=== PATIENT | female | born 1965 | race Asian ===

== ENCOUNTER 2017-04-30 20:00 | Emergency (ER) | payer OTHER ==
[~2017-04-30] VITALS: Ht 152.4 cm; Wt 60.0 kg
[2017-04-30 20:05] VITALS: BP 149/79; PULSE 70; RESP 16; TEMP 98.2; O2SAT 100
[2017-04-30 20:16] VITALS: O2SAT 100
[2017-04-30] MEDS ORDERED: ONDANSETRON HCL 4 MG/2 ML VIAL ONE (20:32)
[2017-04-30 20:36] LABS: AUTOMATED NEUTROPHIL # 14.1 TH/MM3 (1.8-7.7); BASOPHIL % 0.3 % (0.0-2.0); EOSINOPHIL % 0.1 % (0.0-4.0); HEMATOCRIT 40.6 % (35.0-46.0); HEMOGLOBIN 13.8 GM/DL (11.6-15.3); LYMPH % 7.2 % (9.0-44.0); LYMPHOCYTE # 1.1 TH/MM3 (1.0-4.8); MEAN CORPUSCULAR HEMOGLOBIN 27.9 PG (27.0-34.0); MEAN PLATELET VOLUME 8.3 FL (7.0-11.0); MONO % 2.5 % (0.0-8.0); MONOCYTE # 0.4 TH/MM3 (0-0.9); NEUT % 89.9 % (16.0-70.0); PLATELET COUNT 291 TH/MM3 (150-450); RED BLOOD COUNT 4.95 MIL/MM3 (4.00-5.30); RED CELL DISTRIBUTION WIDTH 13.1 % (11.6-17.2); WHITE BLOOD COUNT 15.7 TH/MM3 (4.0-11.0)
[2017-04-30] MEDS ORDERED: SODIUM CHLOR 0.9% 1000 ML INJ 1,000 ML IV ONE (20:45)
[2017-04-30] MEDS ORDERED: ONDANSETRON HCL 4 MG/2 ML VIAL IV PUSH ONE (20:45)
--- NOTE | 2017-04-30 21:07 | PD ---
HPI Chief Complaint: Syncope/Near-Syncope Time Seen by Provider: 20:13 Travel History International Travel<30 days: Yes Contact w/Intl Traveler<30days: Yes Name of Country Traveled to: [place] Traveled to known affect area: No History of Present Illness HPI 52-year-old female that presents to the ED for evaluation of syncope. Patient has syncopal episode today. This was witnessed by multiple people. Patient is from [place] and apparently has been under a lot of stress secondary to a primary she was planning a republican today and recent family loss. Per family member and patient she has not eaten anything since last night. Denies any symptoms like this in the past. Per patient today before this happened she started feeling numbness and tingling to her arms and legs and then the she had the syncopal episode. Per family and patient she did not completely lose consciousness. Ambulance was called for evaluation. She was brought here by ambulance. She denies any pain but she states that she feels "dizzy". Per patient she feels weak and tired. She has had some nausea and she did throw up once here today in the ED. She denies any chest pain or shortness of breath. No abdominal pain. No urinary or bowel movement symptoms. She has no allergies to medication. She has not seen anybody for this. She denies any history of ACS states that she takes no medications. She can recently from [place]. Family provides most of the translation and information. Event happened about half an hour before coming to the ED and possibly less than 5 minutes. PFSH Past Medical History Diminished Hearing: No ?: Not Past Surgical History Other Surgery: Yes (NOSE, BREAST BIOPSY) Social History Alcohol Use: Yes (OCCASIONALLY) Tobacco Use: No Substance Use: No Allergies-Medications (Allergen,Severity, Reaction): Coded Allergies: No Known Allergies (Unverified , 04/30/17) Reported Meds & Prescriptions Reported Meds & Active Scripts Active Potassium Chloride ER (Potassium Chloride) 10 Meq Tab 10 Meq PO DAILY 5 Days Review of Systems Except as stated in HPI: all other systems reviewed are Neg Physical Exam Narrative GENERAL: SKIN: Warm and dry. HEAD: Atraumatic. Normocephalic. EYES: Pupils equal and round 4 mm reactive to light and accommodation. No scleral icterus. No injection or drainage. ENT: No nasal bleeding or discharge. Mucous membranes pink and moist. Tongue is midline. No uvula deviation. NECK: Trachea midline. No JVD. CARDIOVASCULAR: Regular rate and rhythm. No murmurs, S3, S4. RESPIRATORY: No accessory muscle use. Clear to auscultation. Breath sounds equal bilaterally. GASTROINTESTINAL: Abdomen soft, non-tender, nondistended. Hepatic and splenic margins not palpable. MUSCULOSKELETAL: Extremities without clubbing, cyanosis, or edema. No obvious deformities. Full range of motion of the upper and lower extremities bilaterally. 2+ pulses bilaterally. Sensation intact bilaterally. NEUROLOGICAL: Awake and alert. No obvious cranial nerve deficits. Motor grossly within normal limits. Five out of 5 muscle strength in the arms and legs. Normal speech. PSYCHIATRIC: Appropriate mood and affect; insight and judgment normal. Data Data Last Documented VS Vital Signs Date Time Temp Pulse Resp B/P (MAP) Pulse Ox O2 Delivery O2 Flow Rate FiO2 04/30/17 21:54 70 16 158/84 (108) 100 Room Air 04/30/17 20:05 98.2 Orders Orders Electrocardiogram (04/30/17 20:13) Complete Blood Count With Diff (04/30/17 20:13) Basic Metabolic Panel (Bmp) (04/30/17 20:13) Ckmb (Isoenzyme) Profile (04/30/17 20:13) Troponin I (04/30/17 20:13) D-Dimer (04/30/17 20:13) Magnesium (Mg) (04/30/17 20:13) Thyroid Stimulating Hormone (04/30/17 20:13) Chest, Single Ap (04/30/17 20:13) Ct Brain W/O Iv Contrast(Rout) (04/30/17 20:13) Iv Access Insert/Monitor (04/30/17 20:13) Ecg Monitoring (04/30/17 20:13) Oximetry (04/30/17 20:13) Ondansetron Inj (Zofran Inj) (04/30/17 20:32) Ondansetron Inj (Zofran Inj) (04/30/17 20:45) Sodium Chlor 0.9% 1000 Ml Inj (Ns 1000 M (04/30/17 20:45) Orthostatic Vital Signs (04/30/17 20:36) Potassium Chlor 10 Meq Premix (Kcl 10 Me (04/30/17 21:30) Potassium Chloride (Kcl) (04/30/17 21:30) Ed Discharge Order (04/30/17 22:46) Labs Laboratory Tests Test 04/30/17 20:20 White Blood Count 15.7 TH/MM3 Red Blood Count 4.95 MIL/MM3 Hemoglobin 13.8 GM/DL Hematocrit 40.6 % Mean Corpuscular Volume 82.0 FL Mean Corpuscular Hemoglobin 27.9 PG Mean Corpuscular Hemoglobin Concent 34.0 % Red Cell Distribution Width 13.1 % Platelet Count 291 TH/MM3 Mean Platelet Volume 8.3 FL Neutrophils (%) (Auto) 89.9 % Lymphocytes (%) (Auto) 7.2 % Monocytes (%) (Auto) 2.5 % Eosinophils (%) (Auto) 0.1 % Basophils (%) (Auto) 0.3 % Neutrophils # (Auto) 14.1 TH/MM3 Lymphocytes # (Auto) 1.1 TH/MM3 Monocytes # (Auto) 0.4 TH/MM3 Eosinophils # (Auto) 0.0 TH/MM3 Basophils # (Auto) 0.0 TH/MM3 CBC Comment DIFF FINAL Differential Comment D-Dimer Quantitative (PE/DVT) 0.49 MG/L FEU Blood Urea Nitrogen 17 MG/DL Creatinine 0.94 MG/DL Random Glucose 155 MG/DL Calcium Level 8.8 MG/DL Magnesium Level 1.8 MG/DL Sodium Level 135 MEQ/L Potassium Level 2.6 MEQ/L Chloride Level 102 MEQ/L Carbon Dioxide Level 22.4 MEQ/L Anion Gap 11 MEQ/L Estimat Glomerular Filtration Rate 62 ML/MIN Total Creatine Kinase 74 U/L Troponin I LESS THAN 0.02 NG/ML Thyroid Stimulating Hormone 3rd Gen 1.740 uIU/ML MDM Medical Decision Making Medical Screen Exam Complete: Yes Emergency Medical Condition: Yes Medical Record Reviewed: Yes Interpretation(s) CBC & BMP Diagram 04/30/17 20:20 Calcium Level 8.8, Magnesium Level 1.[address] 04/30/172012 Signed Impressions: Service Date/Time: Sunday, April 30, 2017 21:30 - CONCLUSION: No acute intracranial findings. Andreas Sarabia MD Chest X-Ray 04/30/172012 Signed Impressions: Service Date/Time: Sunday, April 30, 2017 20:31 - CONCLUSION: No acute cardiopulmonary disease identified. Andreas Sarabia MD Troponin and CK-MB negative. EKG showed sinus rhythm with no sign of acute ischemia or arrhythmia read by me and attending. Differential Diagnosis Anxiety versus syncope versus presyncope versus dehydration versus chest pain versus ACS versus head injury versus normal exam Narrative Course 52-year-old female that presents to the ED for evaluation of possible syncope. Patient was properly examined and was found to have signs and symptoms consistent appears to be possible syncope. Labs and imaging ordered. Labs and imaging showed no sign of acute disease other than hypokalemia. Case discussed in my attending Dr. Marcelo who evaluated the patient with me and agrees with plan. Patient prefers to go home. She was offered admission for further evaluation but she declines at this time. She was given IV potassium as well as by mouth potassium. Patient was given a prescription for by mouth potassium. Told to get her potassium rechecked in about a week. See ED for any worsening symptoms. Follow with PCP. Diagnosis Primary Impression: Syncope Qualified Codes: R55 - Syncope and collapse Additional Impression: Hypokalemia Patient Instructions: General Instructions Additional Instructions: Take medication as prescribed. Follow with PCP. See ED for worsening symptoms. Med/Other Pt SpecificInfo: Prescription(s) given Scripts Potassium Chloride ER (Potassium Chloride ER) 10 Meq Tab 10 MEQ PO DAILY for Electrolyte Replacement for 5 Days, #5 TAB 0 Refills Prov: Jurgen Marcelo MD 04/30/17 Disposition: 01 DISCHARGE HOME Condition: Stable Emil Estrada Apr 30, 2017 21:07
[2017-04-30 21:17] LABS: BICARBONATE 22.4 MEQ/L (21.0-32.0); BLOOD UREA NITROGEN 17 MG/DL (7-18); CALCIUM 8.8 MG/DL (8.5-10.1); CHLORIDE 102 MEQ/L (98-107); CREATININE 0.94 MG/DL (0.50-1.00); GLOMERULAR FILTRATION RATE 62 ML/MIN (>89); GLUCOSE,RANDOM 155 MG/DL (74-106); MAGNESIUM 1.8 MG/DL (1.5-2.5); SODIUM (NA) 135 MEQ/L (136-145); TROPONIN I LESS THAN 0.02 NG/ML (0.02-0.05)
[2017-04-30] MEDS ORDERED: POTASSIUM CHLOR 10 MEQ PREMIX 100 ML IV ONE (21:30)
[2017-04-30] MEDS ORDERED: POTASSIUM CHLORIDE 20 MEQ CONTROLLED RELEASE TAB PO ONE (21:30)
--- NOTE | 2017-04-30 21:37 | RADRPT ---
EXAM DATE/TIME: 04/30/2017 20:31 [facility] COMPARISON: No previous studies available for comparison. INDICATIONS : Syncope. MEDICAL HISTORY : None. SURGICAL HISTORY : None. ENCOUNTER: Initial ACUITY: 1 day PAIN SCORE: 0/10 LOCATION: Bilateral chest FINDINGS: Single AP view of the chest. The lungs are clear. Cardiomediastinal silhouette within normal limits. No evidence of pleural effusion or pneumothorax. CONCLUSION: No acute cardiopulmonary disease identified. Andreas Sarabia MD on April 30, 2017 at 21:35 Board Certified Radiologist. This report was verified electronically.
[2017-04-30 21:54] VITALS: BP 158/84; PULSE 70; RESP 16; O2SAT 100
--- NOTE | 2017-04-30 22:23 | RADRPT ---
EXAM DATE/TIME: 04/30/2017 21:30 [facility] COMPARISON: No previous studies available for comparison. INDICATIONS : Syncope with nausea. RADIATION DOSE: 28.95 CTDIvol (mGy) MEDICAL HISTORY : None SURGICAL HISTORY : None. ENCOUNTER: Initial ACUITY: 1 day PAIN SCALE: 0/10 LOCATION: cranial TECHNIQUE: Multiple contiguous axial images were obtained of the head. Using automated exposure control and adj ustment of the mA and/or kV according to patient size, radiation dose was kept as low as reasonably a chievable to obtain optimal diagnostic quality images. DICOM format image data is available electro nically for review and comparison. FINDINGS: CEREBRUM: The ventricles are normal for age. No evidence of midline shift, mass lesion, hemorrhage or acute in farction. No extra-axial fluid collections are seen. POSTERIOR FOSSA: The cerebellum and brainstem are intact. The 4th ventricle is midline. The cerebellopontine angle i s unremarkable. EXTRACRANIAL: The visualized portion of the orbits is intact. SKULL: The calvaria is intact. No evidence of skull fracture. CONCLUSION: No acute intracranial findings. Andreas Sarabia MD on April 30, 2017 at 22:21 Board Certified Radiologist. This report was verified electronically.
[2017-04-30] MEDS ORDERED: POTA10TA2 PO (22:46)
[2017-04-30 22:58] VITALS: BP_SYST 146; BP_SYST 154; BP_DIAS 87; BP_DIAS 88; BP_DIAS 94; RESP 16
--- NOTE | 2017-04-30 23:11 | PD ---
Data Data Last Documented VS Vital Signs Date Time Temp Pulse Resp B/P (MAP) Pulse Ox O2 Delivery O2 Flow Rate FiO2 04/30/17 23:00 04/30/17 22:58 70 16 71 16 66 04/30/17 21:54 100 Room Air 04/30/17 20:05 98.2 Orders Orders Electrocardiogram (04/30/17 20:13) Complete Blood Count With Diff (04/30/17 20:13) Basic Metabolic Panel (Bmp) (04/30/17 20:13) Ckmb (Isoenzyme) Profile (04/30/17 20:13) Troponin I (04/30/17 20:13) D-Dimer (04/30/17 20:13) Magnesium (Mg) (04/30/17 20:13) Thyroid Stimulating Hormone (04/30/17 20:13) Chest, Single Ap (04/30/17 20:13) Ct Brain W/O Iv Contrast(Rout) (04/30/17 20:13) Iv Access Insert/Monitor (04/30/17 20:13) Ecg Monitoring (04/30/17 20:13) Oximetry (04/30/17 20:13) Ondansetron Inj (Zofran Inj) (04/30/17 20:32) Ondansetron Inj (Zofran Inj) (04/30/17 20:45) Sodium Chlor 0.9% 1000 Ml Inj (Ns 1000 M (04/30/17 20:45) Orthostatic Vital Signs (04/30/17 20:36) Potassium Chlor 10 Meq Premix (Kcl 10 Me (04/30/17 21:30) Potassium Chloride (Kcl) (04/30/17 21:30) Ed Discharge Order (04/30/17 22:46) Labs Laboratory Tests Test 04/30/17 20:20 White Blood Count 15.7 TH/MM3 Red Blood Count 4.95 MIL/MM3 Hemoglobin 13.8 GM/DL Hematocrit 40.6 % Mean Corpuscular Volume 82.0 FL Mean Corpuscular Hemoglobin 27.9 PG Mean Corpuscular Hemoglobin Concent 34.0 % Red Cell Distribution Width 13.1 % Platelet Count 291 TH/MM3 Mean Platelet Volume 8.3 FL Neutrophils (%) (Auto) 89.9 % Lymphocytes (%) (Auto) 7.2 % Monocytes (%) (Auto) 2.5 % Eosinophils (%) (Auto) 0.1 % Basophils (%) (Auto) 0.3 % Neutrophils # (Auto) 14.1 TH/MM3 Lymphocytes # (Auto) 1.1 TH/MM3 Monocytes # (Auto) 0.4 TH/MM3 Eosinophils # (Auto) 0.0 TH/MM3 Basophils # (Auto) 0.0 TH/MM3 CBC Comment DIFF FINAL Differential Comment D-Dimer Quantitative (PE/DVT) 0.49 MG/L FEU Blood Urea Nitrogen 17 MG/DL Creatinine 0.94 MG/DL Random Glucose 155 MG/DL Calcium Level 8.8 MG/DL Magnesium Level 1.8 MG/DL Sodium Level 135 MEQ/L Potassium Level 2.6 MEQ/L Chloride Level 102 MEQ/L Carbon Dioxide Level 22.4 MEQ/L Anion Gap 11 MEQ/L Estimat Glomerular Filtration Rate 62 ML/MIN Total Creatine Kinase 74 U/L Troponin I LESS THAN 0.02 NG/ML Thyroid Stimulating Hormone 3rd Gen 1.740 uIU/ML MDM Supervised Visit with BEATRICE: Yes Narrative Course The history, exam, and medical decision-making in the associated mid-level provider note were completed with my assistance. I reviewed and agree with the findings presented. I attest that I had a [id number] encounter with the patient on the same day, and personally performed and documented my assessment and findings in the medical record. *My assessment and Findings: 52 old woman with syncope in the setting of not eating and high stress. Looks well. Low potassium. EKG is unremarkable. Offered admission but she feels well like to go home. I think this is reasonable. Will need repeat potassium as an outpatient. Diagnosis Primary Impression: Syncope Qualified Codes: R55 - Syncope and collapse Additional Impression: Hypokalemia Patient Instructions: General Instructions Departure Forms: Tests/Procedures Additional Instruction: Take medication as prescribed. Follow with PCP. See ED for worsening symptoms. Scripts Potassium Chloride ER (Potassium Chloride ER) 10 Meq Tab 10 MEQ PO DAILY for Electrolyte Replacement for 5 Days, #5 TAB 0 Refills Prov: Jurgen Marcelo MD 04/30/17 Disposition: 01 DISCHARGE HOME Condition: Stable Jurgen Marcelo MD Apr 30, 2017 23:11
--- NOTE | 2017-05-01 07:19 | EKG ---
Date Performed: 04/30/2017 Time Performed: 20:22:03 PTAGE: 52 years EKG: Sinus rhythm NONSPECIFIC T-WAVE ABNORMALITY PROLONGED QT INTERVAL ABNORMAL ECG NO PREVIOUS TRACING DOCTOR: Russ Subramanian Interpretating Date/Time 05/01/2017 07:19:10
== END 2017-04-30 23:31 | disposition home or self-care (01) ==
LOC: NEPE 20:00
DX: R55 Syncope and collapse (principal); E87.6 Hypokalemia; R11.0 Nausea; R53.1 Weakness
CPT/HCPCS: 70450; 71010; 80048; 82550; 83735; 84443; 84484; 85025; 85379; 93005; 96361; 96374; 96375; 99285; J2405; J3480; J7030